=== PATIENT | female | born 1935 | race Caucasian/White ===

== ENCOUNTER 2016-05-21 06:48 | Day surgery (SDC) | payer OTHER ==
[2016-05-20 13:45] VITALS: BMI 27.0
[2016-05-21] MEDS ORDERED: CIPROFLOXACIN 0.3% EYE DROPS 5 ML BOTTLE ONE (07:00)
[2016-05-21] MEDS ORDERED: CYCLOPENTOLATE 2% OPHTH SOLN 2 ML BOTTLE ONE (07:00)
[2016-05-21] MEDS ORDERED: PHENYLEPHRINE 2.5% OPHTH SOLN 15 ML BOTTLE ONE (07:00)
[2016-05-21] MEDS ORDERED: TROPICAMIDE 1% OPHTH SOLN 15 ML BOTTLE ONE (07:00)
[2016-05-21] MEDS ORDERED: BSS (NA/CA/MG/K) BALANCED SALT SOLUTION OPHTH SOLN 15 ML BOTTLE ONE (07:27)
[2016-05-21] MEDS ORDERED: LIDOCAINE HCL 2% JELLY 10 ML CARTRIDGE ONE (07:27)
[2016-05-21] MEDS ORDERED: LIDOCAINE 1% P/F 10 MG/ML VIAL ONE (07:27)
[2016-05-21] MEDS ORDERED: TETRACAINE 0.5% OPHTH SOLN 2 ML BOTTLE ONE (07:27)
[2016-05-21] MEDS ORDERED: CARBACHOL 0.01% INTRA-OCULAR 1.5 ML VIAL ONE (07:28)
[2016-05-21] MEDS ORDERED: NEO/POLYMYX B SULF/DEXAMETH OPHTHALMIC 5ML BOTTLE ONE (07:28)
[2016-05-21] MEDS ORDERED: MIDAZOLAM HCL 2 MG/2 ML SINGLE DOSE VIAL ONE (08:16)
--- NOTE | 2016-05-21 09:37 | OP ---
DATE OF OPERATION: 05/21/2016 OPERATIVE PROCEDURE: Lens Phacoemulsification with Posterior Chamber Intraocular Lens Placement Left Eye PREOPERATIVE DIAGNOSIS: Visually Significant Cataract of Left Eye POSTOPERATIVE DIAGNOSIS: Visually Significant Cataract of Left Eye SURGEON: Kaden Romero M.D. ANESTHESIA: MAC PROCEDURE: The patient was brought to the operating room and placed under monitored anesthesia care by Anesthesia. A drop of Tetracaine was then placed over the left eye. The patient was then prepped and draped in the usual sterile manner. A speculum was then placed over the left eye. The eye was then well irrigated with copious amounts of BSS (balanced salt solution). The operating microscope was then moved into position. A paracentesis was performed using a 15 degree blade. At this point 0.5 mL of 1% preservative-free lidocaine was injected into the anterior chamber. Amvisc plus was then injected into the anterior chamber. A clear corneal incision was then formed using a 2.2 mm keratome. A capsulorrhexis was then performed in a continuous circular fashion beginning with a cystotome, completed with an Utratas forceps. Hydrodissection was then performed using BSS on a cannula. The phaco probe was then introduced through the corneal wound and the cataract was removed using the phaco chop technique. Approximately 3 seconds of absolute phaco time was used. The remaining cortex was then removed using irrigation and aspiration with an I/A probe. The capsule was then filled with regular Amvisc and the capsule was noted to be intact. A previously selected foldable posterior chamber intraocular lens was then injected into the capsule through the corneal wound using a lens injector. It was then dialed into position using a Sinskey hook. The Amvisc was then removed using irrigation and aspiration. Miostat was then injected through the paracentesis to constrict the pupil. The paracentesis and corneal wound were then hydrated and noted to be water tight. A drop of Maxitrol was then placed over the eye. The speculum was removed and clear shield was taped over the eye. The patient tolerated the procedure well and there were no surgical complications. The patient was asked to follow up in my office the next day. KADEN ROMERO M.D. RICHARD/[id number]
[2016-05-21 15:03] VITALS: TEMP 97.3
[2016-05-21 15:10] VITALS: BP 179/71; PULSE 56
== END 2016-05-21 09:50 | disposition home or self-care (01) ==
LOC: FASU 06:48
PROVIDERS: ATTEND Ophthalmology
PROC: 08RK3JZ Replacement of Left Lens with Synthetic Substitute, Percutaneous Approach (ICD-10-PCS; principal; 2016-05-21 08:29)
DX: H26.9 Unspecified cataract (principal)

== ENCOUNTER 2019-01-24 11:50 | Emergency (ER) | payer OTHER ==
[2019-01-24 12:05] VITALS: BMI 29.2
[2019-01-24] MEDS ORDERED: ACETAMINOPHEN 1000 MG/100 ML VIAL (NON FORMULARY) IVPB ONE (12:59)
--- NOTE | 2019-01-24 13:16 | PDOC ---
History of Present Illness - General Chief Complaint: Injury Stated Complaint: Injury Time Seen by Provider: 01/24/19 12:04 History Source: Patient Exam Limitations: No Limitations Past History - Past Medical History Allergies/Adverse Reactions: Allergies Allergy/AdvReac Type Severity Reaction Status Date / Time Penicillins Allergy Severe Swelling Verified 05/20/16 13:37 Home Medications: Ambulatory Orders Atenolol [Tenormin -] 25 mg PO DAILY 11/12/15 Furosemide 20 mg PO DAILY 11/12/15 Aspirin Coated [Ecotrin -] 81 mg PO DAILY #30 tablet.ec 12/06/15 Acetaminophen [Tylenol Extra Strength] 500 mg PO PRN PRN 01/24/19 Albuterol Sulfate Inhaler - [Ventolin Hfa Inhaler -] 1 - 2 inh PO Q6H 01/24/19 Asenapine Maleate [Saphris] 10 mg SL HS 01/24/19 Azithromycin [Zithromax 250mg Tablets -] 250 mg PO UTDICT #6 tab 01/24/19 Cetirizine HCl [Zyrtec -] 10 mg PO DAILY 01/24/19 Guaifenesin/Dextromethorphan [Robitussin Cough-Chest Dm Liq] 10 ml PO Q6H PRN Lurasidone HCl [Latuda] 80 mg PO DAILY 01/24/19 Montelukast Sodium [Singulair] 10 mg PO DAILY 01/24/19 Olopatadine HCl 1 drop OP PRN PRN 01/24/19 Potassium Chloride 20 meq PO DAILY 01/24/19 Quetiapine Fumarate "Xr" [Seroquel Xr -] 150 mg PO DAILY 01/24/19 Temazepam [Restoril] 15 mg PO PRN PRN 01/24/19 Anemia: No Asthma: No Cancer: No Cardiac Disorders: No CVA: No COPD: No CHF: No Dementia: No Diabetes: No GI Disorders: No Disorders: Yes (INCT OCCASIONALLY-FREQUENT URINATION) HTN: No Hypercholesterolemia: Yes Liver Disease: No Psychiatric Problems: Yes (DEPRESSION) Seizures: No Thyroid Disease: No - Surgical History Abdominal Surgery: No Appendectomy: No Cardiac Surgery: No Cholecystectomy: No Lung Surgery: No Neurologic Surgery: No Orthopedic Surgery: Yes (LEFT KNEE ARTHROSCOPY,) - Psycho Social/Smoking Cessation Hx Smoking History: Never smoked Have you smoked in the past 12 months: No Information on smoking cessation initiated: No Hx Alcohol Use: No Drug/Substance Use Hx: No Substance Use Type: Alcohol Hx Substance Use Treatment: No Review of Systems - Review of Systems Able to Perform ROS?: Yes Is the patient limited Vietnamese proficient: No *Physical Exam - Vital Signs Last Vital Signs Temp Pulse Resp BP Pulse Ox 98.8 F 66 18 122/76 93 L 01/24/19 12:05 01/24/19 11:57 01/24/19 11:57 01/24/19 11:57 01/24/19 11:57 ED Treatment Course - LABORATORY CBC & Chemistry Diagram: 01/24/19 13:00 01/24/19 13:03 - RADIOLOGY Radiology Studies Ordered: Category Date Time Status CERVICAL SPINE CT W/O CONTR [CT] Stat CT Scan 01/24/19 12:[address] WITHOUT CONTRAST [CT] Stat CT Scan 01/24/19 12:57 Ordered CHEST X-RAY PORTABLE* [RAD] Stat Radiology 01/24/19 12:59 Ordered SPINE-LUMBAR ONLY [RAD] Stat Radiology 01/24/19 12:59 Ordered SPINE-LUMBAR SACRAL [RAD] Stat Radiology 01/24/19 12:59 Ordered SPINE-THORACIC [RAD] Stat Radiology 01/24/19 12:59 Ordered Medical Decision Making - Medical Decision Making 01/24/19 13:02 HPI: 83F PMH HTN, HLD, BPD, CVA presenting from [place] after a fall around 11pm last night. Patient denies LOC, states she got out of bed and felt lightheaded/ weak and subsequently fall back hitting her back against the radiator. After incident endorsing right elbow and wrist pain, mild chest pain, nausea, and need to defecate. Denies headstrike. Denies preceding chest pain. Endorses 3 days of lightheadedness, mild sob, nonproductive scratchy cough, sore throat, and sick contacts. No changes in appetite. PMH: as above, seasonal allergies Allergy: PCN ROS: CONSTITUTIONAL: Endorses subjective fever HEENT: Endorses lightheadedness. Denies headache changes in vision / hearing, diplopia, blurry vision. Endorses sore throat. RESP: Endorses SOB, cough (nonproductive) CARD: see HPI GI: Denies current N/V, abd pain, diarrhea. Endorses nausea after fall. : Endorses 1 month of frequency, denies dysuria. MSK: see HPI NEURO: Endorses chronic LE numbness. PE: GEN: Well appearing, NAD, comfortable. Awake and alert HEENT: NC/AT, EOMI, PERRLA. No facial asymmetry. Moist mucous membranes, nonerythematous posterior pharynx. Normal voice. CV: S1/S2, RRR, no m/r/g LUNG: Mostly CTAB. Occasional wheezes on Right. GI: soft, ndnt, +BS, no guarding, no rebound. No masses. EXTREMITIES: UE: tenderness of the right elbow. Tenderness of right wrist w/ active motion. 2+ LE edema. No obvious deformities of all extremities. SKIN: warm, dry, normal turgor PSYCH: normal mood and affect NEURO: CN II-XII grossly intact. Sensation intact throughout. Able to stand and ambulate w/ assistance. Moving all extremities. BACK: + midline tenderness of the C7, thoracic, and lumbar spine; + paraspinal tenderness. No step offs. MDM: 83F presenting after unwitnessed fall from [facility]. No LOC, no headstrike. Endorsing back and right arm pain. Endorsing 3 days lightheadedness, mild sob, sore throat, cough, and sick contacts. likely UTI vs vasovagal. r/o ACS. eval for fractures. - cbc, cmp, trop - UA, UC - EKG, CXR - CT head and c spine - XR lumbar, thoracic, right elbow, right wrist 01/24/19 15:02 Labs unremarkable, UA neg CT head report - no acute pathology; see report for full detail CT neck report - no fracture; see report for full detail Afebrile on rectal T SaO2 91-95% on monitor f/u CXR, XR, rapid flu reassess 500 NS 01/24/19 18:18 CXR report reviewed XR films reviewed reassessed - patient looking well, eating will reassess SaO2 and ambulation 01/24/19 18:51 Rapid flu neg SaO2 96% RA Normally ambulates w/ walker Ambulates well w/ walk-like assistance DC to [facility] w/ Zpack & return precautions Discharge - Discharge Information Problems reviewed: Yes Clinical Impression/Diagnosis: Fall Qualifiers: Encounter type: initial encounter Qualified Code(s): W19.XXXA - Unspecified fall, initial encounter Condition: Improved Disposition: [facility] F[facility] - Admission No - Additional Discharge Information Prescriptions: Azithromycin [Zithromax 250mg Tablets -] 250 mg PO UTDICT #6 tab - Follow up/Referral - Patient Discharge Instructions Patient Printed Discharge Instructions: How to Prevent Falls Additional Instructions: You were seen and treated in the Emergency Department. You may take tylenol for pain. We sent an antibiotic to your pharmacy ([facility]), please leaf size picker and take as directed. Follow up with your primary care doctor within the next 3 days regarding this ED visit. IMMEDIATELY return to the ED if you experience any of the following: - falls, lightheadedness, seizure, loss of consciousness - chest pain, shortness of breath - severe or increasing pain - ANYTHING that concerns you - Post Discharge Activity
[2019-01-24] MEDS ORDERED: ACETAMINOPHEN INJECTION 100 ML IVPB ONE (13:38)
[2019-01-24 13:42] LABS: BASO % 0.7 % (0-2.0); EOS % 2.2 % (0-4.5); HEMATOCRIT 37.5 % (32.4-45.2); HEMOGLOBIN 12.7 GM/dL (10.7-15.3); LYMPH % 33.6 % (8-40); MCH 30.8 pg (25.7-33.7); MEAN CELL VOLUME 90.5 fl (80-96); MEAN PLT VOLUME 9.5 fl (7.5-11.1); MONO % 13.2 % (3.8-10.2); NEUT % 50.3 % (42.8-82.8); PLATELET COUNT 139 K/MM3 (134-434); RBC 4.14 M/mm3 (3.60-5.2); RDW 14.4 % (11.6-15.6); WHITE BLOOD COUNT 5.8 K/mm3 (4.0-10.0)
[2019-01-24 13:51] LABS: URINE APPEARANCE CLEAR; URINE BILIRUBIN NEGATIVE (NEGATIVE); URINE COLOR YELLOW; URINE GLUCOSE (UA) NEGATIVE (NEGATIVE); URINE KETONE NEGATIVE (NEGATIVE); URINE LEUK ESTERASE NEGATIVE (NEGATIVE); URINE NITRITE NEGATIVE (NEGATIVE); URINE PROTEIN NEGATIVE (NEGATIVE); URINE UROBILINOGEN 0.2 mg/dL (0.2-1.0)
--- NOTE | 2019-01-24 14:00 | PDOC ---
Documentation entered by Cleveland Elder SCRIBE, acting as scribe for Nima Ruff MD. Nima Ruff MD: This documentation has been prepared by the Jerrod jaeger Daniel, SCRIBE, under my direction and personally reviewed by me in its entirety. I confirm that the documentation accurately reflects all work, treatment, procedures, and medical decision making performed by me. Attending Attestation - Resident Resident Name: MahamedGabriel - ED Attending Attestation I have performed the following: I have examined & evaluated the patient, The case was reviewed & discussed with the resident, I agree w/resident's findings & plan, Exceptions are as noted - HPI HPI: 01/24/19 13:38 The patient is an 83 year old with a past medical history of sleep disorder, HTN , CHF, and diabetes here today from [facility] for evaluation of fall. Patient reports that she felt lightheaded last night when she was getting out of bed and fell backwards hitting her back on the wall. She currently notes right wrist , right elbow, and back pain and describes it as an 8/10. She also notes increased urinary frequency, and mild chest pain after her fall. Pt does endorse a cough/sore throat and mild heaache for the past 4-5 days and subjective fever yesterday. Patient denies chills. Denies nausea, vomiting, diarrhea, vision changes, neck pain, numness/tingling/weakness. Allergies: penicillins - Physicial Exam PE: 01/24/19 13:38 GENERAL: The patient is awake, alert, and fully oriented, Nontoxic - in no acute distress. HEAD: Normocephalic, atraumatic. EYES: extraocular movements intact, sclera anicteric, conjunctiva clear. ENT: Normal voice, Moist mucous membranes. NECK: Normal range of motion, supple Back: +contusion right mid thacic back, mild tendeness along midline thoracic/ lumbar bck withou bruising/crepitus/stepoffs LUNGS: +scattered wheezing in right lung. No rhonchi, no rales. HEART: Regular rate and rhythm, without murmur, rub or gallop. ABDOMEN: Soft, nontender, No guarding, no rebound.No CVA tenderness EXTREMITIES: Normal range of motion, no edema. mild ttp ot R knee Normal ROM of b/l hip/knee/ankle/shouler/elbow/wrist NEUROLOGICAL: No facial assymetry, Normal speech, PSYCH: Normal mood, normal affect. SKIN: +hematoma right buttock. Warm, Dry, normal turgor - Medical Decision Making 01/24/19 13:09 83y F hx of seasonal allergies, htn, chf, dm, presents [place] for suspected fall last night when she was getting out of bed and felt lightheaded, bumped her back on ewall and was sent to ED for evaluation - pt endorses feelin R elbow/arm pain and feeling lightheaded since her fall. pt also endorses a mil headche for about 5 days wih sore throat. Pt endorses a mild cough and urinary frequency. no fever/chlls, n/v, palpitations, diarrhea, abd pain. plan for head/neck ct spine xrays cxr to r/o pna as pt has assymetric breath sounds and hypoxia will erassess 01/24/19 16:32 labs reviewed, will repeat sat and reassess pt if hypoxic will admit for clinical pna if normal saturations and pt ambulating w/o sob or desat will dc with azithrro Heart Score/ECG Review - ECG Impressions Comment:: 01/24/19 15:39 Twelve-lead EKG was performed and reviewed by me. There is normal sinus rhythm with a normal rate. rate of 68 The axis is normal. The intervals are normal. There is normal R wave progression There are no ST or T wave abnormalities. Impression: Normal twelve-lead EKG
[2019-01-24 14:13] LABS: ALBUMIN 3.6 g/dl (3.4-5.0); BILIRUBIN,TOTAL 0.3 mg/dL (0.2-1); BLOOD UREA NITROGEN 18.2 mg/dL (7-18); CALCIUM 9.2 mg/dL (8.5-10.1); CREATININE 0.9 mg/dL (0.55-1.3); TOT PROT 6.2 g/dl (6.4-8.2)
[2019-01-24] MEDS ORDERED: SODIUM CHLORIDE 0.9% 500 ML INFUS.BAG IV ONE (15:02)
--- NOTE | 2019-01-24 16:12 | EKG ---
Test Reason : Blood Pressure : / mmHG Vent. Rate : 068 BPM Atrial Rate : 068 BPM P-R Int : 148 ms QRS Dur : 088 ms QT Int : 448 ms P-R-T Axes : -15 050 052 degrees QTc Int : 476 ms NORMAL SINUS RHYTHM NORMAL ECG WHEN COMPARED WITH ECG OF 25-NOV-2016 12:02, NO SIGNIFICANT CHANGE WAS FOUND Confirmed by JESSE VAIL MD ([id number]) on 01/24/2019 4:11:58 PM Referred By: Confirmed By:JESSE VAIL MD
[2019-01-24] MEDS ORDERED: ALBUTEROL SO4 2.5/IPRATROPIUM 0.5 INH SOL 3 ML VIAL.NEB. NEB ONE (16:38)
[2019-01-24 20:27] VITALS: BP 129/52; PULSE 71; TEMP 98.4
== END 2019-01-24 22:38 ==
LOC: JER 11:50
PROC: 3E033NZ Introduction of Analgesics, Hypnotics, Sedatives into Peripheral Vein, Percutaneous Approach (ICD-10-PCS; principal; 2019-01-24)
PROC: 3E0F7GC Introduction of Other Therapeutic Substance into Respiratory Tract, Via Natural or Artificial Opening (ICD-10-PCS; 2019-01-24)
DX: S39.82XA Other specified injuries of lower back, initial encounter (principal); M54.5 Low back pain; M54.6 Pain in thoracic spine; M25.521 Pain in right elbow; M25.531 Pain in right wrist; W01.198A Fall on same level from slipping, tripping and stumbling with subsequent striking against other object, initial encounter; Y93.89 Activity, other specified; Y92.092 Bedroom in other non-institutional residence as the place of occurrence of the external cause; Y99.8 Other external cause status; I10 Essential (primary) hypertension; F31.9 Bipolar disorder, unspecified; E78.5 Hyperlipidemia, unspecified; Z86.73 Personal history of transient ischemic attack (TIA), and cerebral infarction without residual deficits; Z88.0 Allergy status to penicillin; R05 Cough; R06.02 Shortness of breath
CPT/HCPCS: 36415; 70450-TC; 71045-TC-FY; 72070-TC-FY; 72100-TC-FY; 72125-TC; 73070-TC-RT-FY; 73110-TC-RT-FY; 73130-TC-RT-FY; 80053; 81003; 82550; 84484; 85025; 87086; 87804; 93005; 93010; 94640; 96374; 99284-25; J0131

== ENCOUNTER 2021-02-04 18:11 | Emergency (ER) | payer OTHER ==
[2021-02-04 18:45] VITALS: BP 130/53; PULSE 51; TEMP 98.5; BMI 27.2
== END 2021-02-04 21:15 | disposition home or self-care (01) ==
LOC: FER 18:11
PROC: 0HQ0XZZ Repair Scalp Skin, External Approach (ICD-10-PCS; principal; 2021-02-04)
PROC: 0HQ2XZZ Repair Right Ear Skin, External Approach (ICD-10-PCS; 2021-02-04)
DX: S01.01XA Laceration without foreign body of scalp, initial encounter (principal); S01.311A Laceration without foreign body of right ear, initial encounter; W01.0XXA Fall on same level from slipping, tripping and stumbling without subsequent striking against object, initial encounter
CPT/HCPCS: 70450-TC; 72125-TC; 99284-25

== ENCOUNTER 2021-11-25 16:47 | Emergency (ER) | payer OTHER ==
[2021-11-25 17:34] VITALS: BP 135/52; PULSE 63; RESP 18; TEMP 98.1; BMI 27.4
== END 2021-11-25 21:33 ==
LOC: JER 16:47
DX: R68.89 Other general symptoms and signs (principal); Y04.8XXA Assault by other bodily force, initial encounter
CPT/HCPCS: 82962; 99283-25